=== PATIENT | female | born 1965 | race Caucasian/White ===

== ENCOUNTER → 2017-11-23 | Day surgery (SDC) | payer OTHER ==
[~2017-11-23] MED LIST: CEFAZOLIN 1 GM/50 ML (PMX) 50 ML IVPB; SOD CHLORIDE 0.9% 1,000 ML IV
== END | disposition home or self-care (01) ==
LOC: SDS 14:44
DX: K82.0 Obstruction of gallbladder (principal); Z53.9 Procedure and treatment not carried out, unspecified reason

== ENCOUNTER 2017-12-12 12:04 | Day surgery (SDC) | payer OTHER ==
[~2017-12-12 12:04] MED LIST changes: +CEFAZOLIN 1 GM INJ
[2017-12-12 13:16] LABS: ADD MAN DIFF? NO
[2017-12-12 13:21] LABS: WHITE BLOOD COUNT 6.8 10^3/ul (4.8-10.8)
[2017-12-12 13:21] LABS: BASOPHILS % 0.3 % (0.0-2.0); EOSINOPHILS # 0.1 10^3/ul (0.0-0.5); EOSINOPHILS % 0.7 % (0.0-7.0); HEMATOCRIT 38.5 % (37.0-47.0); HEMOGLOBIN 13.3 g/dl (12.0-16.0); LYMPHOCYTES % 44.1 % (15.0-51.0); MEAN CORPUSCULAR HEMOGLOBIN 29.7 pg (29.0-33.0); MEAN CORPUSCULAR HGB CONC 34.5 g/dl (32.0-37.0); MEAN CORPUSCULAR VOLUME 85.9 fl (82.0-101.0); MEAN PLATELET VOLUME 9.9 fl (7.4-10.4); MONOCYTE # 0.3 10^3/ul (0.3-0.9); MONOCYTES % 4.3 % (0.0-11.0); NEUTROPHIL # 3.4 10^3/ul (1.6-7.5); NEUTROPHILS % 50.3 % (39.0-77.0); PLATELET COUNT 193 10^3/UL (140-415); RED BLOOD COUNT 4.48 10^6/ul (4.20-5.40); RED CELL DISTRIBUTION WIDTH 13.9 % (11.5-14.5)
[2017-12-12 13:35] LABS: ALANINE AMINOTRANSFERASE 35 IU/L (13-69); ALBUMIN 4.1 g/dl (3.3-4.9); ALKALINE PHOSPHATASE 79 IU/L (42-121); ANION GAP 14 (8-16); ASPARTATE AMINO TRANSFERASE 44 IU/L (15-46); BILIRUBIN,INDIRECT 0.3 mg/dl (0-1.1); BILIRUBIN,TOTAL 0.3 mg/dl (0.2-1.3); CARBON DIOXIDE 27 mmol/L (21-31); CHLORIDE 106 mmol/L (97-110); GLUCOSE 96 mg/dl (70-220); TOTAL PROTEIN 8.2 g/dl (6.1-8.1)
[2017-12-12 13:36] LABS: BLOOD UREA NITROGEN 12 mg/dl (7-20); CALCIUM 9.2 mg/dl (8.4-10.2); CREATININE 0.81 mg/dl (0.44-1.00); POTASSIUM 4.1 mmol/L (3.5-5.1); SODIUM 143 mmol/L (135-144)
[2017-12-12 13:42] LABS: INR 1.04; PROTIME 13.7 Sec (11.9-14.9); PT RATIO 1.1
[2017-12-12 13:43] LABS: PARTIAL THROMBOPLASTIN TIME 32.5 Sec (25.0-35.0)
[2017-12-12] MEDS ORDERED: OXYCODONE/ACETAMINOPHEN (5/325) TAB PO (14:00)
[2017-12-12] MEDS ORDERED: HYDROmorphONE (0.2 MG/ML) 10ML SYG IV ×3 (14:00)
[2017-12-12] MEDS ORDERED: MEPERIDINE 25 MG INJ IV (14:00)
[2017-12-12] MEDS ORDERED: PROCHLORPERAZINE 10 MG INJ IV (14:00)
[2017-12-12] MEDS ORDERED: DIPHENHYDRAMINE 50 MG INJ IV (14:00)
[2017-12-12] MEDS ORDERED: FENTAnyl 50 MCG/ML VIAL IV ×2 (14:00)
[2017-12-12] MEDS ORDERED: ONDANSETRON 4 MG INJ IV ×2 (14:00→15:30)
[2017-12-12] MEDS ORDERED: BUPIVACAINE 0.25% (MPF) 30 ML INJ (14:04)
[2017-12-12] MEDS ORDERED: FENTAnyl 50 MCG/ML VIAL (14:12)
[2017-12-12] MEDS ORDERED: MIDAZOLAM 1 MG/ML 2 ML INJ (14:12)
[2017-12-12] MEDS: BUPIVACAINE 0.25%/EPI (SDV) 30 ML INJ (14:41)
[2017-12-12] MEDS ORDERED: DEXAMETHASONE 4 MG/ML 1 ML INJ (14:59)
[2017-12-12] MEDS ORDERED: SUCCINYLCHOLINE CHLORIDE 100 MG/5 ML SYG IV (14:59)
[2017-12-12] MEDS ORDERED: LIDOCAINE 2% (SDV) 5 ML INJ (14:59)
[2017-12-12] MEDS ORDERED: ROCURONIUM 50 MG INJ (14:59)
[2017-12-12] MEDS ORDERED: ETOMIDATE 20 MG INJ (14:59)
[2017-12-12] MEDS ORDERED: ONDANSETRON 4 MG INJ (14:59)
[2017-12-12] MEDS ORDERED: FAMOTIDINE 20 MG INJ (15:00)
[2017-12-12] MEDS ORDERED: KETOROLAC 30 MG INJ (15:01)
[2017-12-12] MEDS ORDERED: SUGAMMADEX SODIUM 200 MG/2 ML VIAL IV ×2 (15:06→15:18)
[2017-12-12] MEDS ORDERED: EPHEDrine SULFATE 50 MG/5 ML SYG (15:24)
[2017-12-12] MEDS ORDERED: IBUPROFEN 600 MG TAB PO (15:30)
[2017-12-12] MEDS ORDERED: morphine 2 MG INJ IV (15:30)
[2017-12-12] MEDS ORDERED: KETOROLAC 30 MG INJ IV (15:30)
[2017-12-12] MEDS ORDERED: HYDROCODONE/APAP (5/325) TAB PO ×2 (15:30)
[2017-12-12] MEDS: FENTAnyl 50 MCG/ML VIAL IV (16:32)
== END 2017-12-12 17:58 | disposition home or self-care (01) ==
LOC: SDS 12:04
DX: K80.10 Calculus of gallbladder with chronic cholecystitis without obstruction (principal); I10 Essential (primary) hypertension; E78.5 Hyperlipidemia, unspecified; I25.10 Atherosclerotic heart disease of native coronary artery without angina pectoris; I25.2 Old myocardial infarction
CPT/HCPCS: 47562; 71045; 80053; 85025; 85610; 85730; 88304; 93005

== ENCOUNTER 2017-12-21 16:44 | Emergency (ER) | payer OTHER | END 2017-12-21 18:27 | disposition home or self-care (01) | LOC: FTE 16:44 | DX: S63.92XA Sprain of unspecified part of left wrist and hand, initial encounter (principal); I10 Essential (primary) hypertension; W18.39XA Other fall on same level, initial encounter; Y92.9 Unspecified place or not applicable; Z79.82 Long term (current) use of aspirin | CPT/HCPCS: 29125; 73110-LT; 73130-LT; 99283-25 ==